=== PATIENT | male | born 1970 | race Asian ===

== ENCOUNTER 2019-05-13 16:50 | Emergency (ER) | payer OTHER ==
[~2019-05-13] VITALS: Ht 162.6 cm; Wt 74.8 kg
[~2019-05-13 16:50] MED LIST: ORPH100T PO
[2019-05-13 16:58] VITALS: BP 160/99
[2019-05-13] MEDS ORDERED: IBUPROFEN 200 MG TABLET. PO ONE (17:15)
[2019-05-13] MEDS ORDERED: HYDROcodone/APAP 5/325MG 1 TAB TABLET PO ONE (17:15)
--- NOTE | 2019-05-13 18:43 | PHYS DOC ---
Past Medical History Past Medical History: Diabetes-Type II, High Cholesterol, Hypertension, Other Additional Past Medical Histor: BACK PAIN Past Surgical History: No Surgical History Alcohol Use: None Drug Use: None Adult General Chief Complaint Chief Complaint: LOWER BACK PAIN OR INJURY [facility] HPI Patient is a 49 year old [f__sex] who presents with [] Review of Systems Review of Systems Constitutional: Denies fever or chills [] Eyes: Denies change in visual acuity, redness, or eye pain [] HENT: Denies nasal congestion or sore throat [] Respiratory: Denies cough or shortness of breath [] Cardiovascular: No additional information not addressed in HPI [] GI: Denies abdominal pain, nausea, vomiting, bloody stools or diarrhea [] : Denies dysuria or hematuria [] Musculoskeletal: Denies back pain or joint pain [] Integument: Denies rash or skin lesions [] Neurologic: Denies headache, focal weakness or sensory changes [] Endocrine: Denies polyuria or polydipsia [] All other systems were reviewed and found to be within normal limits, except as documented in this note. Current Medications Current Medications Current Medications Medications (Trade) Dose Ordered Sig/Galina Start Time Stop Time Status Last Admin Dose Admin Acetaminophen/ Hydrocodone Bitart (Lortab 5/325) 1 tab 1X ONCE 05/13/19 17:15 05/13/19 17:16 DC 05/13/19 17:25 1 TAB Ibuprofen (Motrin) 600 mg 1X ONCE 05/13/19 17:15 05/13/19 17:16 DC 05/13/19 17:25 600 MG Allergies Allergies Allergies Coded Allergies Type Severity Reaction Last Updated Verified No Known Drug Allergies 05/10/19 No Physical Exam Physical Exam Constitutional: Well developed, well nourished, no acute distress, non-toxic appearance. [] HENT: Normocephalic, atraumatic, bilateral external ears normal, oropharynx moist, no oral exudates, nose normal. [] Eyes: PERRLA, EOMI, conjunctiva normal, no discharge. [] Neck: Normal range of motion, no tenderness, supple, no stridor. [] Cardiovascular:Heart rate regular rhythm, no murmur [] Lungs & Thorax: Bilateral breath sounds clear to auscultation [] Abdomen: Bowel sounds normal, soft, no tenderness, no masses, no pulsatile masses. [] Skin: Warm, dry, no erythema, no rash. [] Back: No tenderness, no CVA tenderness. [] Extremities: No tenderness, no cyanosis, no clubbing, ROM intact, no edema. [] Neurologic: Alert and oriented X 3, normal motor function, normal sensory function, no focal deficits noted. [] Psychologic: Affect normal, judgement normal, mood normal. [] Current Patient Data Vital Signs Vital Signs Date Time Temp Pulse Resp B/P (MAP) Pulse Ox O2 Delivery O2 Flow Rate FiO2 05/13/19 17:25 97 05/13/19 16:58 97.5 16 160/99 (119) Room Air 97.5 EKG EKG [] Radiology/Procedures Radiology/Procedures [] Course & Med Decision Making Course & Med Decision Making Pertinent Imaging studies reviewed. (See chart for details) 1830: Patient reports following medications his pain has improved. Patient encouraged to ambulate and do light stretching. He remains PMS intact in bilateral lower extremities and is in no visible distress. Dragon Disclaimer Dragon Disclaimer This electronic medical record was generated, in whole or in part, using a voice recognition dictation system. Departure Departure Impression: Primary Impression: Back pain Disposition: HOME, SELF-CARE Condition: STABLE Referrals: GLORIA GARG MD (PCP) Patient Instructions: Back Pain, Adult Additional Instructions: Ice and/or heat compress to affected area every 3-4 hours for 20-30 minutes at a time. The counter sports creams as directed on container to affected area in lower back. If symptoms persist follow-up with your primary care physician and or an orthopedic doctor for reevaluation and further care. Tylenol and/or ibuprofen as needed for pain as directed on container. Continue the prescribed Robaxin as directed on the container. You are being provided with [place] tablets if the pain is intolerable you can take additional medication however both of those medications combined can cause sedation. Avoid driving or drinking alcohol while taking those medications. Scripts Hydrocodone/Apap 5-325 (NORCO 5-325 TABLET) 1 Each Tablet 1 TAB PO PRN Q6HRS PRN for PAIN, #8 TAB 0 Refills No driving or drinking alcohol while taking this medication Prov: TIMUR RAMIREZ APRN 05/13/19 TIMUR RAMIREZ APRN May 13, 2019 18:43
[2019-05-13] MEDS ORDERED: HYDR-3164 PO (18:45)
--- NOTE | 2019-05-13 23:21 | RAD ---
Lumbar spine 3 views. HISTORY: Low back pain 3 views were taken of the lumbar spine. There is a calculus in the lower left kidney. There are mild hypertrophic changes in the lumbar spine. Disc spaces are normal in height. A fracture is not identified. IMPRESSION: 1. Left renal calculus. 2. Mild hypertrophic change in lumbar spine. 3. No acute fracture. Electronically signed by: Raheem Izquierdo MD (05/13/2019 11:18 PM) [facility]
== END 2019-05-13 18:53 | disposition home or self-care (01) ==
LOC: ER 16:50
DX: M54.5 Low back pain (principal); E11.9 Type 2 diabetes mellitus without complications; E78.00 Pure hypercholesterolemia, unspecified; I10 Essential (primary) hypertension; Z98.890 Other specified postprocedural states
CPT/HCPCS: 72100; 99284